=== PATIENT | male | born 1955 | race Caucasian/White ===

== ENCOUNTER 2023-01-29 08:10 | Day surgery (SDC) | payer MEDICARE, BC, SELFPAY ==
[2023-01-29] VITALS (11 sets, daily range): BP systolic 107–141; BP diastolic 57–74; PULSE 61–80; RESP 12–16; TEMP 36.1–37.2; O2SAT 91–97; BMI 27.1
[2023-01-29] MEDS: LACTATED RINGERS 1000 ML 1,000 ML 100 ML IV (07:50)
--- NOTE | 2023-01-29 09:25 | SUR.PREOP ---
TIME?OUT:?924 PT/RN/MDA?VERIFICATION?OF?SURGICAL?SITE,?PROCEDURE,?AND?CONSENT OBTAINED?PRIOR?TO?INVASIVE?PROCEDURE.
[2023-01-29] MEDS: fentaNYL 100 MCG/2 ML inj IVP (09:45)
[2023-01-29] MEDS: MIDAZOLAM HCL 1 MG/ML inj IVP (09:45)
--- NOTE | 2023-01-29 10:12 | W.PM.NB ---
Nerve Block Nerve Block Time Seen by Provider: 09:50 Date Seen: 01/29/23 Type of block requested by surgeon for post-operative analgesia: supraclavicular Side: left Time out performed: Yes Verification of patient name: Yes Verification of date of : Yes Site marking: site marked Name of person performing procedure: Annia Continuous monitoring Was continuous monitoring of O2 sat, B/P, quality assurance monitor final, recorded every 15 minutes?: Yes Procedure Checklist: sterile prep, needles and gloves Ultrasound guided. Images saved: Yes Medications given in 5ml increments after negative aspiration: Ropivicaine %: 0.5 mL: 20 Needle gauge: 22 Decadron (mg): 10 Precedex (mcg): 20 Patient tolerated procedure well: Yes Block Charges Block Charge (with Pro Fee): Brachial Plexus Use of Ultrasound Machine for Block: Yes- US Guidance/pain block
[2023-01-29] MEDS: EPINEPHrine 1 MG in SODIUM CHLORIDE IRRIG SOLUTION 3,000 ML 3001 MG IRRIGATION ×4 (10:23→11:18)
--- NOTE | 2023-01-29 10:38 | SUR.OPER ---
PATIENT QUESTIONS ANSWERED SATISFACTORILY PREOPERATIVELY. PATIENT BROUGHT TO OR #3 PER CART FOLLOWING THE BLOCK. Patient positioned supine on OR #3 bed for the intubation.? Perioperative team wrapped the right arm in a neutral position on the pt. abdomen with the drawsheet. Left arm elevated on an IV pole in a padded strap. Final approval of positioning by surgeon. CONTINUOUS IRRIGATION OF THE LEFT SHOULDER WITH MIXTURE OF 3000 NACL AND 1mg OF EPINEPHRINE DURING PROCEDURE.
--- NOTE | 2023-01-29 11:29 | PM.ORPRC ---
Procedure Note Date of procedure: 01/29/23 Procedure: PREOPERATIVE DIAGNOSES: 1. Left shoulder rotator cuff [id number] supraspinatus and upper border subscapularis 2. Left shoulder subacromial impingement syndrome. POSTOPERATIVE DIAGNOSES: 1. Left shoulder rotator cuff [id number] supraspinatus and upper border subscapularis 2. 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 Left shoulder synovitis, diffuse 4. Left shoulder subacromial impingement syndrome. NAME OF OPERATION: 1. Left shoulder arthroscopic rotator cuff repair -upper border subscapularis and supraspinatus moderate grade partial-thickness 2. Left shoulder arthroscopic limited glenohumeral debridement 3. Left shoulder arthroscopic bursectomy, subacromial decompression/partial acromioplasty. SURGEON: Hong Pressley MD [employer]YER: Eron MAS. Of note, a skilled dermatology physician assistant was critical for this case to aide in patient positioning, suture manipulation, arm positioning, instrument positioning, and closure. ANESTHESIA: General plus preoperative supraclavicular block. EBL: 25 mL IMPLANTS: Arthrex 4.75 mm BioComposite SwiveLock suture anchor (x2) COMPLICATIONS: None evident INDICATIONS: The patient is a pleasant, 67-year-old male who has experienced left shoulder pain that has been increasing in recent time. Physical exam and imaging were consistent with a rotator cuff tear. Given their findings, as well as the weakness and pain, and inadequate response to nonoperative management, recommendation was made for surgery. FINDINGS: Exam under anesthesia revealed stable shoulder with excellent range of motion. The diagnostic arthroscopy revealed relatively healthy appearing chondral surfaces of the glenohumeral joint. The Subscapularis tendon was torn from its upper border with mild-moderate retraction. The long head of the biceps tendon was intact but did have some low-grade partial-thickness tearing near the origin. The superior rotator cuff tendon was found to be torn on the deep surface/articular side with some fatty tissue replacing the tendinous tissue of the far anterior aspect. The labrum was degeneratively frayed in the anterior and superior aspects. No loose bodies were identified within the pouch or subscapularis recess. PROCEDURE: Following a thorough discussion of risks, benefits, and alternatives, consent was obtained and the left shoulder was marked. The patient was brought to the operating room and placed supine on the operating table. Induction of anesthesia was completed after preoperative supraclavicular block was administered in preop holding. Appropriate time out was performed identifying proper patient, site, and procedure. 2 g IV Ancef was administered within 1 hour of incision preoperatively. The left upper extremity was prepped and draped in the appropriate sterile fashion using ChloraPrep prep. This was after the patient was positioned in the beach chair with their head in neutral alignment and all bony prominences well padded. The shoulder was insufflated with 20mL of normal saline via an 18g spinal needle from a posterior approach. An 11 blade skin incision allowed a blunt trochar to be inserted and diagnostic arthroscopy to be performed with the findings as noted above. An anterior portal was established with an outside in technique. This allowed the probe to be inserted and confirm the diagnostic arthroscopic findings. The shaver was then inserted and allowed debridement of anterior and superior labrum as well as long head of biceps origin. Following this, the upper border subscapularis was repaired after debriding the lesser tuberosity with the shaver and [place] cautery. Subscapularis was captured in horizontal mattress fashion with a fiber tape suture. The tails were brought to a single anchor in the lesser tuberosity with excellent reapproximation of the subscap tendon and good excursion/tension. Thereafter, the subacromial space was entered. Here, a complete bursectomy and partial acromioplasty/subacromial decompression was performed with a combination of radiofrequency ablator, the shaver, and a 5.5 mm bur. Further inspection of the supraspinatus and infraspinatus rotator cuff was performed. This identified the tear as noted above. The margins of the tear were debrided, and the greater tuberosity was debrided with a combination of the [place] cautery, shaver, and bur on reverse setting. After gentle decortication, single FiberTape suture was passed in a horizontal mattress fashion with the scorpion needle. It was brought to a single anchor further laterally with excellent reapproximation and securing of the rotator cuff. Prior to anchor electric mule driver removal, the eyelet sutures were tugged on for each anchor and found that the anchor had excellent stability within the bone. The shoulder was placed through range of motion and found to be stable. The rotator cuff was re-probed and found to be stable. Instruments were removed. Excess fluid was drained, closure performed with 4-0 Monocryl and Steri-Strips. Dressings were applied. Sling was applied. The patient was awoken from anesthesia and transferred to the PACU in stable condition. A skilled dermatology physician assistant was critical for this case to aid in patient positioning, limb positioning, skill to manipulate arthroscopic instruments and camera, suture management, patient safety, and closure. PLAN: 1. Elbow, forearm, wrist and digit range of motion of operative extremity as tolerated. 2. Encouraged ice. 3. Oxycodone for pain as needed. 4. Sling at all times except for ROM and showering. 5. Follow up with PA visit in 1-2 weeks for wound check. Initiate physical therapy following that visit for passive range of motion. Initiate active assisted range of motion at 2 weeks given small tear (early motion is favored). May do pendulums now.
--- NOTE | 2023-01-29 11:42 | W.ANESCHARGE ---
Anesthesia Charges Start Date/Time Anesthesia Start Date: 01/29/23 Anesthesia Start Time: 09:57 Stop Date/Time Anesthesia Stop Date: 01/29/23 Anesthesia Stop Time: 11:42
[2023-01-29] MEDS: LACTATED RINGERS 1000 ML 1,000 ML 35 ML IV (11:50)
== END 2023-01-29 13:19 | disposition home or self-care (01) ==
PROVIDERS: Visit Provider Orthopaedic Surgery Sports Medicine
PROC: (CPT 29805; principal; 2023-01-29 10:30)
DX: M75.102 Unspecified rotator cuff tear or rupture of left shoulder, not specified as traumatic (principal); M75.42 Impingement syndrome of left shoulder; M65.812 Other synovitis and tenosynovitis, left shoulder; S43.432A Superior glenoid labrum lesion of left shoulder, initial encounter; G89.18 Other acute postprocedural pain
CPT/HCPCS: 29827; 29826; 29822; 01630; 64415; 76942; C1713; J0171; J0330; J1100; J1200; J2250; J2405; J2704; J2710; J2795; J3010; J7120; L3670